=== PATIENT | female | born 1960 | race Caucasian/White ===

== ENCOUNTER 2020-01-06 08:08 | Emergency (ER) | payer MEDICARE, OTHER, SELFPAY ==
[2020-01-06] VITALS (13 sets, daily range): BP systolic 125–186; BP diastolic 62–95; PULSE 80–107; RESP 16–43; O2SAT 86–100; BMI 54.9
--- NOTE | 2020-01-06 08:29 | ECG_ITS ---
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 Measurements Intervals [place] Rate: 95 P: 18 MD: 183 QRS: 30 QRSD: 101 T: 6 QT: 382 QTc: 481 Interpretive Statements SINUS RHYTHM WITH OCCASIONAL VENTRICULAR PREMATURE COMPLEXES NONSPECIFIC ST & T-WAVE ABNORMALITY No previous ECG available for comparison Electronically Signed On 01-06-2020 18:41:41 CDT by Jhonatan Vivas M.D. [id number]
--- NOTE | 2020-01-06 08:29 | XR_ITS ---
WS: [id number] Portable AP semiupright chest, 01/06/2020 Clinical Data: sob Comparison: PA and lateral chest, 09/20/2013. Findings: There is a patchy opacity at the right cardiophrenic angle which may represent acute pneumo mingo. The patient has a poor inspiratory effort. There may be enlargement of the left hilum. There is a shift of the heart from right to left. No nodules or effusions are seen. Monitor leads are on the c hest wall. The pulmonary vascularity is not increased. Degenerative change of the left shoulder is pr esent. XR/XR chest 1V portable [id number] Impression: 1. Patchy opacity at right cardiophrenic angle which could represent pneumonia. 2. Left hilar enlargement with possible volume loss in the left lung and shift of the heart from right to left. 3. Recommend PA and lateral chest.
[2020-01-06 08:51] LABS: ABG PCO2 40.7 mmHg (35-45); ABG PH Result 7.44 (7.35-7.45); Arterial Blood Gas Hematocrit 41.6 % (37-47); Base Excess ABG 3.4 mmol/L (-2.0-2.0); Blood Gas Allen Test Pos; Blood Gas Operator Identificat CK; Blood Gas Sample Site Radial, left; Blood Gas Sample Type Arterial; HCO3 ABG 27.8 mmol/L (22-26); Oxygen Device NC; PO2 ABG 88.8 mmHg (80.0-100.0)
--- NOTE | 2020-01-06 09:06 | PC.NURSE ---
Respiratory place pt on her belly for oxygenation saturation.
[2020-01-06 09:12] LABS: Basophils % 0.2 %; Hematocrit 42.5 % (37.0-47.0); Hemoglobin 13.2 g/dL (11.5-15.3); Lymphocytes # 1.3 10^3/uL (0.8-4.8); Lymphocytes % 14.6 %; Mean Corpuscular HGB Conc 31.1 g/dL (30.0-36.0); Mean Corpuscular Hemoglobin 28.3 pg (28.0-34.0); Mean Platelet Volume 10.2 fL (7.4-10.4); Monocytes # 0.7 10^3/uL (0.2-0.9); Monocytes % 8.3 %; Neutrophils # 6.65 10^3/uL (1.8-7.7); Neutrophils % 76.3 %; Nucleated Red Blood Cells % 0 %; Platelet Count 254 10^3/cmm (130-400); Red Blood Count 4.67 10^6/uL (4.1-5.3); Red Cell Distribution Width 13.7 % (12.1-15.1); White Blood Count 8.7 10^3/uL (4.0-10.0)
--- NOTE | 2020-01-06 09:19 | W.ED.COVID ---
HPI - COVID General: Chief Complaint: COVID symptoms Stated Complaint: SOB/Covid + Time Seen by Provider: 01/06/20 08:15 Triage information: Has fever, cough or shortness of breath. Exposure to COVID + person last 14 days History of Present Illness: HPI Narrative: 59-year-old female presents emergency room with complaint of shortness of breath and difficulty breathing. She had a positive antibody test earlier this week after she had symptoms for about 3 days. She is not had any diarrhea she has severe sore throat and difficult time swallowing. She desats with any activity even sitting up in bed while on oxygen she goes from the mid 90s to the upper 70s. She is tachycardic and tachypneic. She denies any chest pain she does have some leg pain. MD complaint: known COVID positive (Is only been tested on antibody test) and has COVID symptoms Prior covid testing: yes, results known (Antibody testing) COVID 19 common symptoms: positive fever(s), chills, cough, productive cough, dyspnea, nasal congestion and nausea; negative throat pain, vomiting or diarrhea COVID 19 other sytmptoms: positive requiring oxygen, respiratory distress and other concerning symptoms (desaturates in the bed just when sitting up); negative chest pain Onset (ago): day(s) (2) Severity: severe Pertinent comorbid conditions: hypertension, COPD/respiratory disease and obesity Treatment prior to arrival: none COVID Results: SARS-CoV-2 Antigen (Rapid) Positive (Negative) H 01/06/20 11:00 01/06/20 Review of Systems Const: Reports: fever(s) and chills ENMT: Reports: nasal discharge and nasal congestion; Denies: throat pain or ear or mastoid pain Card: Reports: edema and dyspnea on exertion; Denies: chest pain or orthopnea Resp: Reports: dyspnea, productive cough and wheezing GI: Reports: nausea; Denies: abdominal pain, vomiting, hematemesis, coffee ground emesis, diarrhea, constipation, bloating, hematochezia or melena : Denies: flank pain, difficulty voiding, dysuria, urinary frequency or urinary urgency Skin/Breast: Denies: rash or pruritus PFS ED PFSH: Medical History (Updated 01/07/20 @ 07:31 by Stephon Cano DO) Asthma Cardiac arrhythmia Chest pain Diabetes mellitus Hyperlipemia Hypertension Hypothyroid Metabolic syndrome Mitral regurgitation Sleep apnea Vasculitis Surgical History (Updated 01/06/20 @ 09:57 by Stephon Cano DO) H/O thyroidectomy History of tonsillectomy History of uvulopalatopharyngoplasty Family History (Updated 04/14/19 @ 10:22 by Georgina Bell LPN) Other CAD (coronary artery disease) Social History (Updated 04/14/19 @ 10:22 by Georgina Bell LPN) Smoking and tobacco status: never smoked Alcohol intake: never Physical Exam Const: COMMON NORMALS: no acute distress GENERAL APPEARANCE: cooperative and comfortable ORIENTATION/CONSCIOUSNESS: Yes awake, Yes oriented to person, Yes oriented to place and Yes oriented to time HENMT: COMMON NORMALS: normocephalic, atraumatic and hearing grossly normal bilaterally HEAD & SCALP: normocephalic and atraumatic Neck/C-Spine: COMMON NORMALS: no JVD Resp: COMMON NORMALS: normal respiratory effort, No retractions, No use of accessory muscles and clear to auscultation bilaterally AUSCULTATION: clear to auscultation bilaterally Cardio: COMMON NORMALS: no JVD, regular rate, regular rhythm and No murmurs present (Cardio) RATE: regular rate RHYTHM: regular rhythm GI: COMMON NORMALS: Soft to palpation and No hepatosplenomegaly present AUSCULTATION: Yes normoactive bowel sounds PALPATION: Yes Soft to palpation, No Tenderness to palpation present (GI), No Guarding due to palpation present (GI) and Yes No hepatosplenomegaly present Extremity: COMMON NORMALS: normal to inspection, capillary refill normal, no clubbing, cyanosis or edema, no calf tenderness and no pedal edema Neuro: SENSORIUM/ORIENTATION: Yes oriented to person, Yes oriented to place and Yes oriented to time Skin: COMMON NORMALS: no rashes or lesions noted GENERAL SKIN EXAM: no rashes or lesions noted Procedures Intubation Time out performed: Yes sedative: Etomidate Mg Given: 40 paralytic: Succinylcholine Mg Given: 130 Laryngoscope: fiber optic video scope Assist Device Used: fiber optic device ET Tube Size: 8 ET Tube Uncuffed: No Tube Secured Depth (cm): 21 Tube Secured Location: teeth Additional Comments: Intubation complicated by IV infiltrating during RSI. IV resecured and meds redosed. Course Vital Signs: Vital signs: Vital Signs Pulse Rate 80 01/06/20 18:00 Respiratory Rate 16 01/06/20 18:11 Blood Pressure 128/63 01/06/20 18:00 Pulse Oximetry 96 01/06/20 18:11 MDM - COVID MDM Narrative Medical decision making narrative: Pt maintaining sat only at rest with high flow oxygen. Sitting up to reposition or sign transfer papers. Discussed with pt to safely transfer she will need to be intubated. Pt is agreeable. Transfer needed to have available increased treatment options. Lab Data Attestation: I reviewed the patient's lab results. Result diagrams: 01/06/20 08:50 01/06/20 08:50 Labs: Lab Results 01/06/20 01/06/20 01/06/20 Range/Units 08:37 08:50 08:50 WBC 8.7 (4.0-10.0) 10^3/uL RBC 4.67 (4.1-5.3) 10^6/uL Hgb 13.2 (11.5-15.3) g/dL Hct 42.5 (37.0-47.0) % MCV 91.0 (81-99) fL MCH 28.3 (28.0-34.0) pg MCHC 31.1 (30.0-36.0) g/dL RDW 13.7 (12.1-15.1) % Plt Count 254 (130-400) 10^3/cmm MPV 10.2 (7.4-10.4) fL Neut % (Auto) 76.3 % Lymph % (Auto) 14.6 % [place] % (Auto) 8.3 % Eos % (Auto) 0.0 % Baso % (Auto) 0.2 % Neut # (Auto) 6.65 (1.8-7.7) 10^3/uL Lymph # (Auto) 1.3 (0.8-4.8) 10^3/uL [place] # (Auto) 0.7 (0.2-0.9) 10^3/uL Eos # (Auto) 0.0 (0.0-0.8) 10^3/uL Baso # (Auto) 0.0 (0.0-0.1) 10^3/uL Nucleated RBC % (auto) 0 % Nucleated RBCs # 0.0 /100WBC PT 13.70 (12.1-14.9) SECONDS INR 1.02 (0.8-1.2) Fibrinogen 540 H (174-498) mg/dL D-Dimer 1.73 H (0-0.59) ug/mIFEU Specimen Type Arterial Sample Site Radial, left ABG pH 7.44 (7.35-7.45) ABG pCO2 40.7 (35-45) mmHg ABG pO2 88.8 (80.0-100.0) mmHg ABG HCO3 27.8 H (22-26) mmol/L ABG Base Excess 3.4 H (-2.0-2.0) mmol/L Arpit Test Pos Hematocrit 41.6 (37-47) % O2 Delivery Device Nc O2 Liters/Min 6.0 % FiO2 44.0 % Accounts Payables Clerk ID Ck Sodium (136-145) mmol/L Potassium (3.5-5.1) mmol/L Chloride (98-107) mmol/L Carbon Dioxide (22-29) mmol/L Anion Gap (5-19) BUN (6-20) mg/dL Creatinine (0.5-0.9) mg/dL GFR Calculation (90-130) mL/min Glucose (65-115) mg/dL Calculated Osmolality (285-295) mOsm/kg Lactic Acid (0.5-2.2) mmol/L Calcium (8.5-10.5) mg/dL Magnesium (1.7-2.3) mg/dL Total Bilirubin (0.15-1.2) mg/dL AST (0-32) U/L ALT (0-33) U/L Alkaline Phosphatase (35-105) IU/L Lactate Dehydrogenase (135-214) U/L Troponin T Gen 5 ng/L (0-10) ng/L C-Reactive Protein (0.0-4.9) mg/L NT-Pro-B Natriuret Pep (0-125) pg/mL Total Protein (6.6-8.7) g/dL Albumin (3.5-5.2) g/dL Globulin (1.3-4.6) g/dL Procalcitonin (0-0.5) ng/mL Influenza Type A Ag (Negative) Influenza Type B Ag (Negative) SARS-CoV-2 Ag (Rapid) (Negative) 01/06/20 01/06/20 01/06/20 Range/Units 08:50 08:50 08:50 WBC (4.0-10.0) 10^3/uL RBC (4.1-5.3) 10^6/uL Hgb (11.5-15.3) g/dL Hct (37.0-47.0) % MCV (81-99) fL MCH (28.0-34.0) pg MCHC (30.0-36.0) g/dL RDW (12.1-15.1) % Plt Count (130-400) 10^3/cmm MPV (7.4-10.4) fL Neut % (Auto) % Lymph % (Auto) % [place] % (Auto) % Eos % (Auto) % Baso % (Auto) % Neut # (Auto) (1.8-7.7) 10^3/uL Lymph # (Auto) (0.8-4.8) 10^3/uL [place] # (Auto) (0.2-0.9) 10^3/uL Eos # (Auto) (0.0-0.8) 10^3/uL Baso # (Auto) (0.0-0.1) 10^3/uL Nucleated RBC % (auto) % Nucleated RBCs # /100WBC PT (12.1-14.9) SECONDS INR (0.8-1.2) Fibrinogen (174-498) mg/dL D-Dimer (0-0.59) ug/mIFEU Specimen Type Sample Site ABG pH (7.35-7.45) ABG pCO2 (35-45) mmHg ABG pO2 (80.0-100.0) mmHg ABG HCO3 (22-26) mmol/L ABG Base Excess (-2.0-2.0) mmol/L Arpit Test Hematocrit (37-47) % O2 Delivery Device O2 Liters/Min % FiO2 % Accounts Payables Clerk ID Sodium 136 (136-145) mmol/L Potassium 3.5 (3.5-5.1) mmol/L Chloride 96 L (98-107) mmol/L Carbon Dioxide 26 (22-29) mmol/L Anion Gap 17.5 (5-19) BUN 9 (6-20) mg/dL Creatinine 0.9 (0.5-0.9) mg/dL GFR Calculation 64.1 L (90-130) mL/min Glucose 137 H (65-115) mg/dL Calculated Osmolality 283 L (285-295) mOsm/kg Lactic Acid 1.4 (0.5-2.2) mmol/L Calcium 7.9 L (8.5-10.5) mg/dL Magnesium 2.0 (1.7-2.3) mg/dL Total Bilirubin 0.5 (0.15-1.2) mg/dL AST 31 (0-32) U/L ALT 10 (0-33) U/L Alkaline Phosphatase 96 (35-105) IU/L Lactate Dehydrogenase 446 H (135-214) U/L Troponin T Gen 5 ng/L 15 H (0-10) ng/L C-Reactive Protein 187.0 H (0.0-4.9) mg/L NT-Pro-B Natriuret Pep 999 H (0-125) pg/mL Total Protein 6.6 (6.6-8.7) g/dL Albumin 3.6 (3.5-5.2) g/dL Globulin 3.0 (1.3-4.6) g/dL Procalcitonin 0.29 (0-0.5) ng/mL Influenza Type A Ag (Negative) Influenza Type B Ag (Negative) SARS-CoV-2 Ag (Rapid) (Negative) 01/06/20 01/06/20 Range/Units 11:00 11:00 WBC (4.0-10.0) 10^3/uL RBC (4.1-5.3) 10^6/uL Hgb (11.5-15.3) g/dL Hct (37.0-47.0) % MCV (81-99) fL MCH (28.0-34.0) pg MCHC (30.0-36.0) g/dL RDW (12.1-15.1) % Plt Count (130-400) 10^3/cmm MPV (7.4-10.4) fL Neut % (Auto) % Lymph % (Auto) % [place] % (Auto) % Eos % (Auto) % Baso % (Auto) % Neut # (Auto) (1.8-7.7) 10^3/uL Lymph # (Auto) (0.8-4.8) 10^3/uL [place] # (Auto) (0.2-0.9) 10^3/uL Eos # (Auto) (0.0-0.8) 10^3/uL Baso # (Auto) (0.0-0.1) 10^3/uL Nucleated RBC % (auto) % Nucleated RBCs # /100WBC PT (12.1-14.9) SECONDS INR (0.8-1.2) Fibrinogen (174-498) mg/dL D-Dimer (0-0.59) ug/mIFEU Specimen Type Sample Site ABG pH (7.35-7.45) ABG pCO2 (35-45) mmHg ABG pO2 (80.0-100.0) mmHg ABG HCO3 (22-26) mmol/L ABG Base Excess (-2.0-2.0) mmol/L Arpit Test Hematocrit (37-47) % O2 Delivery Device O2 Liters/Min % FiO2 % Accounts Payables Clerk ID Sodium (136-145) mmol/L Potassium (3.5-5.1) mmol/L Chloride (98-107) mmol/L Carbon Dioxide (22-29) mmol/L Anion Gap (5-19) BUN (6-20) mg/dL Creatinine (0.5-0.9) mg/dL GFR Calculation (90-130) mL/min Glucose (65-115) mg/dL Calculated Osmolality (285-295) mOsm/kg Lactic Acid (0.5-2.2) mmol/L Calcium (8.5-10.5) mg/dL Magnesium (1.7-2.3) mg/dL Total Bilirubin (0.15-1.2) mg/dL AST (0-32) U/L ALT (0-33) U/L Alkaline Phosphatase (35-105) IU/L Lactate Dehydrogenase (135-214) U/L Troponin T Gen 5 ng/L (0-10) ng/L C-Reactive Protein (0.0-4.9) mg/L NT-Pro-B Natriuret Pep (0-125) pg/mL Total Protein (6.6-8.7) g/dL Albumin (3.5-5.2) g/dL Globulin (1.3-4.6) g/dL Procalcitonin (0-0.5) ng/mL Influenza Type A Ag Negative (Negative) Influenza Type B Ag Negative (Negative) SARS-CoV-2 Ag (Rapid) Positive H (Negative) COVID Results: SARS-CoV-2 Antigen (Rapid) Positive (Negative) H 01/06/20 11:00 01/06/20 Discharge Plan Discharge Patient Disposition: Xfer Other Clinical Impression: COVID-19 virus infection, Diabetes, HTN (hypertension) Prescriptions: No Action atenolol 100 mg tablet 100 mg PO QAM RF: 0 furosemide 40 mg tablet 40 mg PO QAM RF: 0 levothyroxine [Synthroid] 200 mcg tablet 200 mcg PO QDAY RF: 0 venlafaxine 150 mg tablet extended release 24hr 150 mg PO QAM RF: 0 gabapentin 300 mg capsule 300 mg PO BID RF: 0 alprazolam 1 mg tablet 1 mg PO BID PRNRF: 0 cetirizine [Zyrtec] 10 mg tablet 10 mg PO BID RF: 0 Spiriva Respimat 1.25 mcg/actuation mist 2 puff INHALATION QAM RF: 0 Symbicort 160-4.5 mcg/actuation HFA aerosol inhaler 2 puff INHALATION BID RF: 0 epinephrine [EpiPen] 0.3 mg/0.3 mL auto-injector 0.3 mg IM ONCE PRNRF: 0 Xolair 150 mg recon soln 150 mg SUBCUT .MONTHLY RF: 0 fluticasone propionate 50 mcg/actuation spray,suspension 1 spray INTRANASAL QDAY PRNRF: 0 clopidogrel 75 mg tablet 75 mg PO QDAY RF: 0 aspirin 81 mg tablet,delayed release (DR/EC) 81 mg PO QDAY RF: 0 loperamide 2 mg capsule 2 mg PO Q4H PRNRF: 0 polymyxin B sulf-trimethoprim [Polytrim] 10,000 unit- 1 mg/mL drops 1 drop ophthalmic (eye) Q3H PRNRF: 0 potassium chloride 20 mEq tablet extended release 20 meq PO QDAY Qty: 30 RF: 11 Referrals: Kapil Turner MD [Family Provider] - Kapil Johns Jr, MD [Primary Care Provider] - Interventions: ED Discharge Assessment Last Done: 01/06/20 18:22 ED Charges Last Done: 01/06/20 18:22 Discharge Date/Time: 01/06/20 18:30 Coding Level of Care Code ED Cook Chill Technician for Chg Fwd Exam Comprehensive
[2020-01-06] MEDS: dexamethasone 4 mg/mL INJ 6 MG IVP (09:25)
[2020-01-06 09:29] LABS: INR 1.02 (0.8-1.2)
[2020-01-06 09:30] LABS: Fibrinogen 540 mg/dL (174-498); Lactic Sepsis W/Reflex 1.4 mmol/L (0.5-2.2)
[2020-01-06 09:32] LABS: D Dimer 1.73 ug/mIFEU (0-0.59)
[2020-01-06 09:34] LABS: Troponin T (5th) Once 15 ng/L (0-10)
[2020-01-06 09:42] LABS: NT Pro B Type Natriuretic Pept 999 pg/mL (0-125); Procalcitonin 0.29 ng/mL (0-0.5)
[2020-01-06 09:53] LABS: Alanine Aminotransferase 10 U/L (0-33); Albumin Level 3.6 g/dL (3.5-5.2); Alkaline Phosphatase 96 IU/L (35-105); Anion Gap 17.5 (5-19); Aspartate Amino Transferase 31 U/L (0-32); Blood Urea Nitrogen 9 mg/dL (6-20); Calcium 7.9 mg/dL (8.5-10.5); Carbon Dioxide 26 mmol/L (22-29); Chloride 96 mmol/L (98-107); Glomerular Filtration Rate 64.1 mL/min (90-130); Glucose 137 mg/dL (65-115); Osmolality Calculated 283 mOsm/kg (285-295); Potassium 3.5 mmol/L (3.5-5.1); Sodium 136 mmol/L (136-145); Total Bilirubin 0.5 mg/dL (0.15-1.2); Total Protein 6.6 g/dL (6.6-8.7)
[2020-01-06 09:55] LABS: Lactate Dehydrogenase 446 U/L (135-214)
[2020-01-06 12:04] LABS: Influenza A by IFA Negative (Negative); SARS Covid-2 Antigen Positive (Negative)
[2020-01-06 12:05] LABS: Influenza B by IFA Negative (Negative)
[2020-01-06] MEDS: acetaminophen 500 mg Tablet 1000 MG PO (13:21)
[2020-01-06] MEDS: succinylcholine 20 mg/mL SDV 10mL 30 MG IVP (16:57)
[2020-01-06] MEDS: vecuronium 10 mg SDV IVP ×2 (17:00→17:05)
[2020-01-06] MEDS: fentaNYL 50 mcg/mL INJ 2mL 100 MCG IVP ×2 (17:02→18:11)
[2020-01-06] MEDS: midazolam 1 mg/mL INJ 2 mL 2 MG (18:28)
[2020-01-06] MEDS: propofol 1,000 MG/100 ML INJ 8.7 MG IV (18:29)
== END 2020-01-06 18:30 | disposition other institution (70) ==
PROVIDERS: Nurse Practitioner Family; Emergency Provider Family Medicine; Family Provider Family Medicine; PCP Family Medicine
DX: U07.1 COVID-19 (principal); E11.9 Type 2 diabetes mellitus without complications; I10 Essential (primary) hypertension; Z79.82 Long term (current) use of aspirin; Z79.02 Long term (current) use of antithrombotics/antiplatelets; E78.5 Hyperlipidemia, unspecified
CPT/HCPCS: 12345; 31500; 36600; 51702; 71045; 80053; 82803; 83605; 83615; 83735; 83880; 84145; 84484; 85025; 85378; 85384; 85610; 86140; 87426; 87804; 93005; 94002; 94799; 96365; 96375; 99284; 99291; J0330; J1100; J2250; J2704; J3010; J3490

== ENCOUNTER 2020-03-02 13:27 | Outpatient (CLI) | payer MEDICARE, OTHER, SELFPAY ==
--- NOTE | 2020-03-02 13:34 | MM_ITS ---
WS: [id number] SCREENING DIGITAL MAMMOGRAM WITH CAD HISTORY: SCREENING COMPARISON: 04/16/2018, 12/23/2016 and 09/04/2005 Bilateral CC and MLO views submitted. Computer aided detection analyzed. Breast composition: There are scattered areas of fibroglandular density. No suspicious masses, microc alcifications or architectural distortion. Benign calcifications in each breast. MM/[id number] IMPRESSION: BI-RADS: 2-Benign FOLLOW UP: 1 Year Follow-up
== END 2020-03-02 13:28 | disposition home or self-care (01) ==
LOC: RADSHAW 13:33
PROVIDERS: PCP Family Medicine; Visit Provider Family Medicine
DX: Z12.31 Encounter for screening mammogram for malignant neoplasm of breast (principal)
CPT/HCPCS: 77067

== ENCOUNTER → 2021-12-11 15:54 | Outpatient (BNVA) | payer MEDICARE, OTHER, SELFPAY | PROVIDERS: PCP Family Medicine; Visit Provider Internal Medicine Cardiovascular Disease | DX: I49.9 Cardiac arrhythmia, unspecified (principal); I11.0 Hypertensive heart disease with heart failure; I50.32 Chronic diastolic (congestive) heart failure; Z86.73 Personal history of transient ischemic attack (TIA), and cerebral infarction without residual deficits; I34.0 Nonrheumatic mitral (valve) insufficiency; G47.39 Other sleep apnea | CPT/HCPCS: 99214 ==

== ENCOUNTER 2022-03-21 14:18 | Outpatient (CLI) | payer MEDICARE, OTHER, SELFPAY ==
--- NOTE | 2022-03-21 14:28 | MM_ITS ---
WS: [id number] Bilateral screening 3D tomosynthesis digital mammogram, 03/21/2022 Clinical Data: SCREENING Comparison: 03/02/2020, 04/16/2018, 12/23/2016, 10/25/2015, 03/23/2012, 09/12/2010, 09/04/2005. Findings: The breast parenchymal pattern shows fibroglandular tissue. No spiculated masses or clustered calcifi cations are seen. There are no secondary signs of carcinoma. There are clips in left axilla from prio r surgery. Impression: 1. Negative bilateral mammogram unchanged. 2. Recommend annual screening mammograms. MM/[id number] BIRADS: 1-Negative FOLLOW UP: 1 Year Follow-up The CAD [employer] was used.
== END 2022-03-21 14:19 | disposition home or self-care (01) ==
PROVIDERS: PCP Family Medicine; Visit Provider Family Medicine
DX: Z12.31 Encounter for screening mammogram for malignant neoplasm of breast (principal)
CPT/HCPCS: 77067

== ENCOUNTER → 2022-10-03 12:49 | Outpatient (BNVA) | payer MEDICARE, OTHER, SELFPAY | PROVIDERS: PCP Family Medicine; Visit Provider Internal Medicine Cardiovascular Disease | DX: N18.9 Chronic kidney disease, unspecified (principal); R06.02 Shortness of breath; R06.09 Other forms of dyspnea; G47.39 Other sleep apnea; I34.0 Nonrheumatic mitral (valve) insufficiency; I49.9 Cardiac arrhythmia, unspecified; I50.32 Chronic diastolic (congestive) heart failure; R94.31 Abnormal electrocardiogram [ECG] [EKG] | CPT/HCPCS: 80048; 83880; 84443; 93005; 99214 ==

== ENCOUNTER 2022-10-11 19:07 | Emergency (ER) | payer MEDICARE, OTHER, SELFPAY ==
[2022-10-11 19:26] VITALS: BMI 53.4
[2022-10-11 19:32] VITALS: BP 140/79; PULSE 77; RESP 20; TEMP 36.5; O2SAT 100
--- NOTE | 2022-10-11 21:36 | XRR_ITS ---
PROCEDURE INFORMATION: Exam: XR Chest Exam date and time: 10/11/2022 9:59 PM Age: 62 years old Clinical indication: Dyspnea; Additional info: Dyspnea/cough TECHNIQUE: Imaging protocol: Radiologic exam of the chest. Views: 1 view. COMPARISON: CR XR chest 1V portable [id number] 01/06/2020 8:36 AM FINDINGS: Lungs: Unremarkable. No consolidation. Pleural spaces: Unremarkable. No pleural effusion. No pneumothorax. Heart/Mediastinum: Cardiomegaly. Bones/joints: Unremarkable. XR/XR chest 1V portable [id number] IMPRESSION: Cardiomegaly, negative for infiltrate.
[2022-10-11 22:00] VITALS: BP 140/81; PULSE 76; RESP 20; O2SAT 98
--- NOTE | 2022-10-11 22:08 | ED_ITS ---
HPI - General Adult General: Chief complaint: Shortness of Breath/Dyspnea Stated complaint: blood in mouth, sob, dr carlos sent for CT Time Seen by Provider: 10/11/22 21:34 Source: patient Mode of arrival: ambulatory History of Present Illness: 60-year-old female presents emergency room with complaint of increasing sinus drainage for the last couple days slight cough this morning she woke up around 1 PM and clears her throat and had some very slight hemoptysis no recurrence then since then. She has a history of chronic COPD and CHF she is on 3 L by nasal cannula is at her baseline she is not tachycardic nor she tachypneic she has no shortness of breath. No recent fever sweats or chills or productive cough other than the single episode today. Onset (ago): day(s) Associated symptoms: Deny chest pain, confusion, cough, diaphoresis, decreased appetite, dyspnea, fevers/chills, headache(s), malaise, nausea, rash, palpitations, seizures, short of breath, syncope, vomiting or weakness Review of Systems Const: Denies: fever(s), chills, malaise or diaphoresis ENMT: Reports: nasal congestion, post nasal drip and sinus pain; Denies: throat pain, ear or mastoid pain or nasal discharge Card: Denies: chest pain, palpitations or syncope Resp: Denies: dyspnea GI: Denies: nausea or vomiting : Denies: flank pain, difficulty voiding, dysuria, urinary frequency or urinary urgency Skin/Breast: Denies: rash Neuro: Denies: headache(s) or confusion PFSH ED PFSH: Medical History Asthma Cardiac arrhythmia Chest pain Diabetes mellitus Family history of COPD (chronic obstructive pulmonary disease) Family history of [place] (myocardial infarction) Family history of premature ventricular contractions History of asthma History of hypertension History of hypothyroidism History of peptic ulcer disease History of shingles History of unsteady gait Hx of amaurosis fugax Hx of cardiac arrhythmia Hx of chest pain Hx of Marga thyroiditis Hx of hyperlipidemia Hx of obesity Hx of shortness of breath Hx of sleep apnea Hx of syncope Hyperlipemia Hypertension Hypothyroid Metabolic syndrome Mitral regurgitation Sleep apnea Vasculitis Surgical History H/O thyroidectomy History of tonsillectomy History of uvulopalatopharyngoplasty Hx of melanoma excision Family History Father CAD (coronary artery disease) Mother Dementia Stroke Brother Diabetes Lung disease Daughter Diabetes Denies family history of Clotting disorder Chronic kidney disease (CKD) Suicide Anesthesia complication Bleeding disorder Cancer Social History Smoking and tobacco status: never smoked Alcohol intake: never Substance/Drug Use: never Physical Exam Const: COMMON NORMALS: no acute distress GENERAL APPEARANCE: cooperative and comfortable ORIENTATION/CONSCIOUSNESS: Yes awake, Yes oriented to person, Yes oriented to place and Yes oriented to time HENMT: COMMON NORMALS: normocephalic, atraumatic and hearing grossly normal bilaterally HEAD & SCALP: normocephalic and atraumatic Resp: COMMON NORMALS: normal respiratory effort, No retractions, No use of accessory muscles and clear to auscultation bilaterally AUSCULTATION: clear to auscultation bilaterally Cardio: COMMON NORMALS: regular rate, regular rhythm and No murmurs present (Cardio) RATE: regular rate RHYTHM: regular rhythm GI: COMMON NORMALS: Soft to palpation and No hepatosplenomegaly present AUSCULTATION: Yes normoactive bowel sounds PALPATION: Yes Soft to palpation, No Tenderness to palpation present (GI), No Guarding due to palpation present (GI) and Yes No hepatosplenomegaly present Extremity: COMMON NORMALS: normal to inspection, capillary refill normal, no clubbing, cyanosis or edema, no calf tenderness and no pedal edema Neuro: SENSORIUM/ORIENTATION: Yes oriented to person, Yes oriented to place and Yes oriented to time Skin: COMMON NORMALS: no rashes or lesions noted GENERAL SKIN EXAM: no rashes or lesions noted Course Vital Signs: Vital signs: Vital Signs Temperature 97.7 F 10/11/22 19:32 Pulse Rate 77 10/11/22 19:32 Respiratory Rate 20 H 10/11/22 19:32 Blood Pressure 140/79 10/11/22 19:32 Pulse Oximetry 100 10/11/22 19:32 Oxygen Delivery Me thod Nasal Cannula 10/11/22 19:32 Oxygen Flow Rate 3 10/11/22 19:32 MDM - General Adult Medical Decision Making Patient reports single episode of hemoptysis earlier today she did not have any recurrence. She is not tachycardic nor is she tachypneic. Her oxygen sats are normal on her usual look oxygen supplementation. We will give her Augmentin to cover for sinusitis that are for an outpatient CT of the chest with contrast follow-up with her primary care doctor return if worsens. Differential Diagnosis Pneumonia, pulmonary embolism, pneumothorax, exacerbation COPD Medical Records I reviewed the patient's medical records. Lab Data I reviewed the patient's lab results. 10/11/22 22:10 10/11/22 22:10 Laboratory Results WBC 7.3 10^3/uL (4.0-10.0) 10/11/22 22:10 RBC 5.23 10^6/uL (4.1-5.3) 10/11/22 22:10 Hgb 14.6 g/dL (11.5-15.3) 10/11/22 22:10 Hct 47.3 % (37.0-47.0) H 10/11/22 22:10 MCV 90.4 fl (81-99) 10/11/22 22:10 MCH 27.9 pg (28.0-34.0) L 10/11/22 22:10 MCHC 30.9 g/dL (30.0-36.0) 10/11/22 22:10 RDW 13.8 % (12.1-15.1) 10/11/22 22:10 Plt Count 319 10^3/cmm (130-400) 10/11/22 22:10 MPV 11.4 fL (7.4-10.4) H 10/11/22 22:10 Neut % (Auto) 35.9 % 10/11/22 22:10 Lymph % (Auto) 52.3 % 10/11/22 22:10 [place] % (Auto) 10.5 % 10/11/22 22:10 Eos % (Auto) 0.3 % 10/11/22 22:10 Baso % (Auto) 0.7 % 10/11/22 22:10 Neut # (Auto) 2.64 10^3/uL (1.8-7.7) 10/11/22 22:10 Lymph # (Auto) 3.8 10^3/uL (0.8-4.8) 10/11/22 22:10 [place] # (Auto) 0.8 10^3/uL (0.2-0.9) 10/11/22 22:10 Eos # (Auto) 0.0 10^3/uL (0.0-0.8) 10/11/22 22:10 Baso # (Auto) 0.1 10^3/uL (0.0-0.1) 10/11/22 22:10 Nucleated RBC % (auto) 0 % 10/11/22 22:10 Nucleated RBCs # 0.0 /100WBC 10/11/22 22:10 Sodium 140 mmol/L (136-145) 10/11/22 22:10 Potassium 3.9 mmol/L (3.5-5.1) 10/11/22 22:10 Chloride 93 mmol/L (98-107) L 10/11/22 22:10 Carbon Dioxide 35 mmol/L (22-29) H 10/11/22 22:10 Anion Gap 15.9 (5-19) 10/11/22 22:10 BUN 9 mg/dL (8-23) 10/11/22 22:10 Creatinine 0.8 mg/dL (0.5-0.9) 10/11/22 22:10 GFR Calculation 72.7 mL/min (90-130) L 10/11/22 22:10 Glucose 122 mg/dL (65-115) H 10/11/22 22:10 Calculated Osmolality 290 mOsm/kg (285-295) 10/11/22 22:10 Calcium 8.9 mg/dL (8.5-10.5) 10/11/22 22:10 Total Bilirubin 0.6 mg/dL (0.15-1.2) 10/11/22 22:10 AST 24 U/L (0-32) 10/11/22 22:10 ALT 10 U/L (0-33) 10/11/22 22:10 Alkaline Phosphatase 77 U/L (35-105) 10/11/22 22:10 Total Protein 7.3 g/dL (6.6-8.7) 10/11/22 22:10 Albumin 3.8 g/dL (3.5-5.2) 10/11/22 22:10 Globulin 3.5 g/dL (1.3-4.6) 10/11/22 22:10 Discharge Plan Discharge Patient Disposition: Home Clinical Impression: Sinusitis, Hemoptysis Condition: Stable Prescriptions: New amoxicillin-pot clavulanate 875-125 mg tablet 1 tab PO BID Qty: 20 0RF No Action atenolol 100 mg tablet 100 mg PO QAM venlafaxine 150 mg tablet extended release 24hr 150 mg PO QAM alprazolam 1 mg tablet 1 mg PO BID PRN cetirizine [Zyrtec] 10 mg tablet 10 mg PO BID Spiriva Respimat 1.25 mcg/actuation mist 2 puff INHALATION QAM Symbicort 160-4.5 mcg/actuation HFA aerosol inhaler 2 puff INHALATION BID epinephrine [EpiPen] 0.3 mg/0.3 mL auto-injector 0.3 mg IM ONCE PRN Xolair 150 mg recon soln 150 mg SUBCUT .MONTHLY fluticasone propionate 50 mcg/actuation spray,suspension 1 spray INTRANASAL QDAY PRN clopidogrel 75 mg tablet 75 mg PO QDAY polymyxin B sulf-trimethoprim [Polytrim] 10,000 unit- 1 mg/mL drops 1 drop ophthalmic (eye) Q3H PRN levothyroxine [Synthroid] 200 mcg tablet 225 mcg PO QDAY escitalopram oxalate 20 mg tablet 20 mg PO DAILY amitriptyline 25 mg tablet 25 mg PO BID gabapentin 600 mg tablet 600 mg PO BID potassium chloride 20 mEq tablet,ER particles/crystals See Rx Instructions .ROUTE .COMPLEX Qty: 90 3RF Dose Instruction: TAKE 1 TABLET BY MOUTH EVERY DAY Rx Instructions: TAKE 1 TABLET BY MOUTH EVERY DAY furosemide 40 mg tablet 40 mg PO QAM Qty: 90 3RF Discharge Orders: Discharge ED (Routine); Ordered 10/11/22 Ordered By: Stephon Cano Referrals: Kapil Carlos MD [Primary Care Provider] - Discharge Diet: Usual diet Discharge Activity: Increase activity as tolerated Patient Instructions: Opioid Safety, Pain Management Activity Restrictions/Additional Instructions: You are seen today for single episode of hemoptysis. This likely that the blood that you had brought up when you clear your throat was from sinus drainage. We will set you up for an outpatient CT scan of your chest with contrast to follow- up with Dr. Carlos. We did give you prescription for Augmentin twice daily for 10 days to treat for sinusitis. Coding Level of Care Code ED Shopping Investigator for Lexii Izquierdo
[2022-10-11 22:18] LABS: Basophils # 0.1 10^3/uL (0.0-0.1); Basophils % 0.7 %; Eosinophils % 0.3 %; Hematocrit 47.3 % (37.0-47.0); Hemoglobin 14.6 g/dL (11.5-15.3); Lymphocytes # 3.8 10^3/uL (0.8-4.8); Lymphocytes % 52.3 %; Mean Corpuscular HGB Conc 30.9 g/dL (30.0-36.0); Mean Corpuscular Hemoglobin 27.9 pg (28.0-34.0); Mean Corpuscular Volume 90.4 fl (81-99); Mean Platelet Volume 11.4 fL (7.4-10.4); Monocytes # 0.8 10^3/uL (0.2-0.9); Monocytes % 10.5 %; Neutrophils # 2.64 10^3/uL (1.8-7.7); Neutrophils % 35.9 %; Nucleated Red Blood Cells % 0 %; Platelet Count 319 10^3/cmm (130-400); Red Blood Count 5.23 10^6/uL (4.1-5.3); Red Cell Distribution Width 13.8 % (12.1-15.1); White Blood Count 7.3 10^3/uL (4.0-10.0)
[2022-10-11 22:40] LABS: Albumin Level 3.8 g/dL (3.5-5.2); Alkaline Phosphatase 77 U/L (35-105); Anion Gap 15.9 (5-19); Blood Urea Nitrogen 9 mg/dL (8-23); Calcium 8.9 mg/dL (8.5-10.5); Carbon Dioxide 35 mmol/L (22-29); Chloride 93 mmol/L (98-107); Globulin 3.5 g/dL (1.3-4.6); Glomerular Filtration Rate 72.7 mL/min (90-130); Glucose 122 mg/dL (65-115); Osmolality Calculated 290 mOsm/kg (285-295); Potassium 3.9 mmol/L (3.5-5.1); Sodium 140 mmol/L (136-145); Total Bilirubin 0.6 mg/dL (0.15-1.2); Total Protein 7.3 g/dL (6.6-8.7)
[2022-10-11 22:41] LABS: Alanine Aminotransferase 10 U/L (0-33); Aspartate Amino Transferase 24 U/L (0-32)
[2022-10-11 23:32] VITALS: BP 122/63; PULSE 72; RESP 20; O2SAT 92
--- NOTE | 2022-10-14 12:23 | DCPLANNER ---
Addendum entered by Nadira Rhodes 10/31/22 12:30: Patient did attend this appointment Addendum entered by Nadira Rhodes 10/15/22 13:29: Patient has a follow up appointment scheduled for October at 11:[address]. Original Note: contract administration manager had message to schedule an outpatient CT chest for patient. contract administration manager faxed signed order to centralized scheduling, who will call patient with appointment information.
== END 2022-10-11 23:16 | disposition home or self-care (01) ==
PROVIDERS: Emergency Provider Family Medicine; PCP Family Medicine
DX: J32.9 Chronic sinusitis, unspecified (principal); R04.2 Hemoptysis; Z79.02 Long term (current) use of antithrombotics/antiplatelets; E11.9 Type 2 diabetes mellitus without complications; I10 Essential (primary) hypertension; E78.5 Hyperlipidemia, unspecified
CPT/HCPCS: 71045; 80053; 85025; 99284

== ENCOUNTER 2022-10-24 10:57 | Outpatient (CLI) | payer MEDICARE, OTHER, SELFPAY ==
--- NOTE | 2022-10-24 11:04 | CT_ITS ---
WS: [id number] CT chest w con* [id number] HISTORY: HEMOPTYSIS, history of melanoma. TECHNIQUE: Axial imaging performed through the thorax. Coronal and sagittal reformats are submitted. [facility] use at least one of these dose optimization techniques: automated exposure control; mA and/or kV adjustment per patient size (includes targeted exams where dose is mat ched to clinical indication); or iterative reconstruction. CONTRAST: None DLP: 715.81 mGy.cm COMPARISON: 07/28/2009 Lungs and central airway: Mild dependent changes and poor inspiration. Very subtle asymmetry in the s uperior segment LEFT lower lobe. May be a focal area of pneumonitis. There are a few very small pleur al tags in the RIGHT thorax. Largest pleural tag was present on the prior study from 2009. Pleura: Normal. No pleural effusion. Heart and pericardium: Normal size heart with no pericardial effusion. Mediastinum and marce: There are a few small, subcentimeter mediastinal and hilar lymph nodes. LEFT hi lar lymph nodes measure up to 14 mm. There are several indeterminate but more prominent lymph nodes a s compared to the prior study. Vessels: Normal size aortic and pulmonary artery. No coronary artery calcifications. Chest wall and lower neck: Enlarged LEFT thyroid lobe. Similar to the prior study. Upper abdomen: Prior cholecystectomy. Moderate distention of the stomach. Osseous structures: No destructive process. CT/CT chest w con* [id number] IMPRESSION: 1. Several prominent but indeterminate LEFT hilar lymph nodes with adjacent mi ld asymmetry in the superior segment LEFT lower lobe. Largest lymph node measur es up to 14 mm in diameter. These lymph nodes are new since 2009. Recommend PET /CT imaging or bronchoscopy for further evaluation. This may be postinflammator y but early neoplasm needs to be excluded. 2. Prior cholecystectomy.
[2022-10-24] MEDS: iohexol 350 mg/mL 500 mL Btl (per mL) IV (11:33)
[2022-10-24 13:09] LABS: Alanine Aminotransferase 10 U/L (0-33); Albumin Level 3.6 g/dL (3.5-5.2); Alkaline Phosphatase 80 U/L (35-105); Blood Urea Nitrogen 10 mg/dL (8-23); Calcium 9.2 mg/dL (8.5-10.5); Carbon Dioxide 30 mmol/L (22-29); Chloride 101 mmol/L (98-107); Globulin 3.2 g/dL (1.3-4.6); Glomerular Filtration Rate 72.7 mL/min (90-130); Glucose 127 mg/dL (65-115); Osmolality Calculated 293 mOsm/kg (285-295); Sodium 141 mmol/L (136-145); Total Bilirubin 0.2 mg/dL (0.15-1.2); Total Protein 6.8 g/dL (6.6-8.7)
[2022-10-24 13:14] LABS: Anion Gap 14.1 (5-19); Aspartate Amino Transferase 20 U/L (0-32); Potassium 4.1 mmol/L (3.5-5.1)
== END 2022-10-24 10:58 | disposition home or self-care (01) ==
PROVIDERS: PCP Family Medicine; Referring Provider Internal Medicine Cardiovascular Disease; Visit Provider Family Medicine
DX: I50.32 Chronic diastolic (congestive) heart failure (principal); Z85.820 Personal history of malignant melanoma of skin
CPT/HCPCS: 36415; 71260; 80053; Q9967

== ENCOUNTER 2023-01-20 15:13 | Outpatient (CLI) | payer MEDICARE, OTHER, SELFPAY ==
--- NOTE | 2023-01-20 15:15 | USCV_ITS ---
Jia Reyes Age: 62 Gender: F : 1960 Exam Date: 01/20/2023 15:33 Ordering Phys: Truong Beasley MD ([email or web address]) Technologist: CT Exam Location: [facility] Indication: MR BP: 110 / 75 HR: 68 Rhythm: Sinus Technical Quality: Adequate MEASUREMENTS (Male / Female) Normal Values 2D ECHO LVOT Diameter 2.1 cm LV Ejection Fraction MOD 2C 52.5 % LV Ejection Fraction 2C AL 52.1 % LA Diameter 4.3 cm Aorta at Sinotubular Diameter 2.6 cm M-MODE Aortic Annulus Diameter 3.5 cm LA Ao Ratio MM 1.3 MV E Point Septal Separation 1.1 cm DOPPLER AV Peak Velocity 125.0 cm/s LVOT Peak Velocity 70.0 cm/s AV Area Cont Eq vti 2.1 cm squared AV Area Cont Eq pk 1.9 cm squared MV E' Velocity 9.0 cm/s TR Peak Velocity 210.7 cm/s TR Peak Gradient 17.8 mmHg TV Peak E Velocity 54.0 cm/s Right Atrial Pressure 3.0 mmHg Pulmonary Artery Systolic Pressu 20.8 mmHg PV Peak Velocity 119.0 cm/s FINDINGS Left Ventricle Left ventricle is normal in size. LV systolic function is normal with EF of 50 to 55%. No regional wall motion abnormalities. Right Ventricle Normal in size and function Right Atrium Normal in size Left Atrium Normal in size Mitral Valve Grossly has stan valve prolapse. Mild mitral regurgitation Aortic Valve Structurally normal aortic valve. No significant stenosis or regurgitation Tricuspid Valve Mild tricuspid regurgitation. Pulmonary artery systolic pressure is normal. Pulmonic Valve Not well-visualized Pericardium Normal Aorta Normal in size IVC Appears to be normal CONCLUSIONS LV systolic function is normal with EF of 50 to 55%. Grossly mitral valve prolapse. Mild mitral regurgitation Mild tricuspid regurgitation Compared to prior echocardiogram from 2018, no significant changes are seen Jhonatan Vivas MD (Electronically Signed) Final Date: 21 January 2023 08:56 S
== END 2023-01-20 15:14 | disposition home or self-care (01) ==
LOC: RAD 15:13
PROVIDERS: PCP Family Medicine; Visit Provider Internal Medicine Cardiovascular Disease
DX: R06.09 Other forms of dyspnea (principal); I08.1 Rheumatic disorders of both mitral and tricuspid valves
CPT/HCPCS: 93306

== ENCOUNTER → 2023-04-17 11:21 | Outpatient (BNVA) | payer MEDICARE, OTHER, SELFPAY | PROVIDERS: PCP Family Medicine; Visit Provider Internal Medicine Pulmonary Disease | DX: R06.02 Shortness of breath (principal); R59.1 Generalized enlarged lymph nodes; Z99.81 Dependence on supplemental oxygen; E66.01 Morbid (severe) obesity due to excess calories; Z68.43 Body mass index [BMI] 50.0-59.9, adult; Z85.820 Personal history of malignant melanoma of skin | CPT/HCPCS: 82785; 85025; 86003; 99204 ==

== ENCOUNTER 2023-04-30 16:29 | Outpatient (CLI) | payer MEDICARE, OTHER, SELFPAY ==
--- NOTE | 2023-04-30 16:30 | CTR_ITS ---
PROCEDURE INFORMATION: Exam: CT Chest Without Contrast; Diagnostic Exam date and time: 04/30/2023 4:37 PM Age: 62 years old Clinical indication: Other: Lymphadenopathy; Patient HX: HX of melanoma; Additional info: Follow up on lymphadenopathy TECHNIQUE: Imaging protocol: Diagnostic computed tomography of the chest without contrast. Radiation optimization: All CT scans at this facility use at least one of these dose optimization techniques: automated exposure control; mA and/or kV adjustment per patient size (includes targeted exams where dose is matched to clinical indication); or iterative reconstruction. COMPARISON: CT chest w con* [id number] 10/24/2022 11:16 AM RADIATION DOSE METRICS: Total DLP (mGy-cm): 705.39 FINDINGS: Thyroid: Atrophic versus surgically absent right thyroid gland. Lungs: No focal consolidation. No pneumothorax. There is mild ground-glass in the posterior segment of the right upper lobe with a 4 mm nodular opacity, possibly infectious or inflammatory (image 12 of the axial series 3). Pleural spaces: No pleural effusion. Heart: No cardiomegaly. No pericardial effusion. Coronary arteries: No evidence of coronary artery calcification. Mediastinal space: Trachea and airway are grossly patent. No evidence of mediastinal hemorrhage or hematoma. Lymph nodes: There has an unchanged 11 mm short axis lower right paratracheal node (image 19 of the axial series 3, corresponding to image 20 of the axial series 3 from prior exam). Evaluation for hilar adenopathy is limited by lack of IV contrast. No findings to suggest worsening hilar adenopathy. Postcontrast exam would be helpful for detailed evaluation as clinically warranted. Vasculature: No evidence of aneurysmal dilatation of the thoracic aorta. Evaluation for acute vascular injury or thrombosis is limited by lack of IV contrast. Bones/joints: No evidence of acute fracture or aggressive osseous lesion. Soft tissues: No evidence of fluid collection or hematoma in the superficial soft tissues. Clips noted in the left axilla. Other findings: No evidence of acute abnormality in the upper abdomen. Status post cholecystectomy. CT/CT chest wo con [id number] IMPRESSION: 1. No evidence of worsening adenopathy. There is a stable 11 mm lower right paratracheal node. Previously described left hilar adenopathy is not well evaluated due to lack of IV contrast. Postcontrast exam would be helpful for detailed evaluation as clinically warranted. 2. Mild ground-glass in the posterior segment of the right upper lobe with a 4 mm nodular opacity, possibly infectious or inflammatory. Consider follow-up exam in 4-6 weeks to assess for resolution.
== END 2023-04-30 16:30 | disposition home or self-care (01) ==
LOC: RAD 16:29
PROVIDERS: PCP Family Medicine; Visit Provider Internal Medicine Pulmonary Disease
DX: R59.1 Generalized enlarged lymph nodes (principal); Z85.820 Personal history of malignant melanoma of skin; R91.8 Other nonspecific abnormal finding of lung field
CPT/HCPCS: 71250

== ENCOUNTER 2023-05-15 10:21 | Outpatient (CLI) | payer MEDICARE, OTHER, SELFPAY ==
[2023-05-15 11:03] VITALS: PULSE 94; RESP 18; O2SAT 92
[2023-05-15] MEDS: albuterol 2.5 mg/3 mL Neb INHALATION (11:03)
[2023-05-15 11:07] VITALS: PULSE 95
== END 2023-05-15 10:22 | disposition home or self-care (01) ==
LOC: RT 10:23
PROVIDERS: PCP Family Medicine; Visit Provider Internal Medicine Pulmonary Disease
DX: R06.02 Shortness of breath (principal)
CPT/HCPCS: 94060; 94618; 94726; 94729; J7613

== ENCOUNTER → 2023-05-21 14:33 | Outpatient (BNVA) | payer MEDICARE, OTHER, SELFPAY | PROVIDERS: PCP Family Medicine; Referring Provider Family Medicine; Visit Provider Specialist | DX: M19.012 Primary osteoarthritis, left shoulder | CPT/HCPCS: 73030; 99204 ==

== ENCOUNTER → 2023-07-22 12:35 | Outpatient (BNVA) | payer MEDICARE, SELFPAY | PROVIDERS: PCP Family Medicine; Visit Provider Internal Medicine Cardiovascular Disease | DX: R06.02 Shortness of breath (principal); I10 Essential (primary) hypertension; I49.9 Cardiac arrhythmia, unspecified; I50.32 Chronic diastolic (congestive) heart failure; I34.0 Nonrheumatic mitral (valve) insufficiency | CPT/HCPCS: 36415; 80048; 83880; 99214 ==

== ENCOUNTER 2023-08-07 15:52 | Emergency (ER) | payer MEDICARE, OTHER, SELFPAY ==
[2023-08-07 15:56] VITALS: BP 118/73; PULSE 81; RESP 20; TEMP 36.7; O2SAT 92
--- NOTE | 2023-08-07 16:01 | USR_ITS ---
PROCEDURE INFORMATION: Exam: US Duplex Left Lower Extremity Veins, Limited Exam date and time: 08/07/2023 5:01 PM Age: 62 years old Clinical indication: Pain; Leg, lower; Left; Additional info: Concern for dvt TECHNIQUE: Imaging protocol: Real-time duplex ultrasound of the left extremity with 2-D lambert scale, color Doppler flow and spectral waveform analysis including responses to compression and other maneuvers (when performed) with image documentation. Limited exam focused on the left lower extremity veins. COMPARISON: No relevant prior studies available. FINDINGS: Left deep veins: Unremarkable. The common femoral, femoral, proximal profunda femoral and popliteal veins are patent without thrombus. Normal Doppler waveforms. Normal compressibility and/or augmentation response. Superficial veins: Greater saphenous vein at the saphenofemoral junction is patent without thrombus. Soft tissues: Unremarkable. US/CV venous duplex [facility] [id number] IMPRESSION: No evidence of deep vein thrombosis.
--- NOTE | 2023-08-07 16:30 | W.ED.EXTPRO ---
HPI - Extremity Problem General: Chief complaint: Extremity Problem,Nontraumatic Stated complaint: Left leg swollen Time Seen by Provider: 08/07/23 16:29 History of Present Illness: 62-year-old female comes in today for complaints of left lower leg redness and swelling. Redness is contained to the lower part of the lower leg with some mild ankle swelling. No significant swelling of the foot is noted. Strong pedal pulses noted. Patient reports noticing the redness and swelling started yesterday. Patient has morbid obesity, valvular heart disease, CHF, PATRICE, chronic lung disease, chronic OA of the knees, IBS, melanoma, enlarged lymph nodes in the chest, and takes omalizumab for chronic allergies. Patient appears nontoxic. Patient reports no fever. Review of Systems General: Reports: 10 or more systems reviewed and unremarkable except in HPI and below Skin/Breast: Reports: erythema PFSH ED PFSH: Medical History History of hypertension Hx of cardiac arrhythmia Hx of hyperlipidemia Hx of chest pain History of peptic ulcer disease Hx of sleep apnea History of hypothyroidism History of shingles History of asthma Hx of shortness of breath Hx of Marga thyroiditis Family history of premature ventricular contractions Hx of syncope History of unsteady gait Hx of amaurosis fugax Family history of [place] (myocardial infarction) Family history of COPD (chronic obstructive pulmonary disease) Hx of obesity Mitral regurgitation Hypertension Cardiac arrhythmia Hyperlipemia Chest pain Sleep apnea Hypothyroid Diabetes mellitus Asthma Metabolic syndrome Vasculitis Surgical History Hx of melanoma excision History of tonsillectomy History of uvulopalatopharyngoplasty H/O thyroidectomy Family History Father CAD (coronary artery disease) Mother Dementia Stroke Brother Diabetes Lung disease Daughter Diabetes Denies family history of Clotting disorder Chronic kidney disease (CKD) Suicide Anesthesia complication Bleeding disorder Cancer Social History Smoking and tobacco/nicotine status: never used tobacco/nicotine Alcohol intake: never Substance/Drug Use: never Physical Exam Const: COMMON NORMALS: alert HENMT: COMMON NORMALS: atraumatic HEAD & SCALP: atraumatic Neck/C-Spine: COMMON NORMALS: full ROM Resp: COMMON NORMALS: normal respiratory effort Cardio: COMMON NORMALS: regular rate and regular rhythm RATE: regular rate RHYTHM: regular rhythm GI: COMMON NORMALS: Soft to palpation PALPATION: Yes Soft to palpation Back/Pelvis: COMMON NORMALS: thoracic and lumbar spine normal to inspection Extremity: COMMON NORMALS: full ROM Neuro: SENSORIUM/ORIENTATION: Yes alert Skin: NARRATIVE SKIN EXAM: Redness with some mild edema to the left lower leg. Course Vital Signs: Vital signs: Vital Signs Temperature 98.1 F 08/07/23 15:56 Pulse Rate 72 08/07/23 17:00 Respiratory Rate 20 H 08/07/23 15:56 Blood Pressure 118/71 08/07/23 17:00 Pulse Oximetry 90 08/07/23 17:00 Oxygen Delivery Me thod Nasal Cannula 08/07/23 17:00 Oxygen Flow Rate 3 08/07/23 16:52 MDM - Extremity (Nontraumatic) Medical Decision Making 62-year-old female comes in today for complaints of redness and swelling to the left lower leg. On exam there is some mild swelling and redness. Pulses are intact to the extremity. Skin is warm and dry. Vital signs are normal. Patient does wear oxygen chronically. Differential diagnosis includes but not limited to stasis dermatitis, cellulitis, DVT. Ultrasound did not note any DVT. Reviewed exam with patient recommended treatment for cellulitis with Augmentin 1 tablet 3 times a day for the next 7 days. Discussed with patient the need to elevate extremity as much as possible. Recommended acetaminophen as needed for pain. Recommend return to ER for worsening symptoms or follow-up with primary care in 1 week. Patient reported understanding and agreed to plan. All radiology interpretation(s) finalized by discharge Discharge Plan Discharge Patient Disposition: Home Clinical Impression: Cellulitis Qualifiers: Site of cellulitis: extremity Site of cellulitis of extremity: lower extremity Laterality: left Qualified Code(s): L03.116 - Cellulitis of left lower limb Condition: Stable Prescriptions: New amoxicillin-pot clavulanate 875-125 mg tablet 1 tab PO TID 7 Days Qty: 21 0RF No Action atenolol 100 mg tablet 100 mg PO QAM venlafaxine 150 mg tablet extended release 24hr 150 mg PO QAM alprazolam 1 mg tablet 1 mg PO BID PRN cetirizine [Zyrtec] 10 mg tablet 10 mg PO BID Spiriva Respimat 1.25 mcg/actuation mist 2 puff INHALATION QAM Symbicort 160-4.5 mcg/actuation HFA aerosol inhaler 2 puff INHALATION BID epinephrine [EpiPen] 0.3 mg/0.3 mL auto-injector 0.3 mg IM ONCE PRN Xolair 150 mg recon soln 150 mg SUBCUT .MONTHLY fluticasone propionate 50 mcg/actuation spray,suspension 1 spray INTRANASAL QDAY PRN clopidogrel 75 mg tablet 75 mg PO QDAY polymyxin B sulf-trimethoprim [Polytrim] 10,000 unit- 1 mg/mL drops 1 drop ophthalmic (eye) Q3H PRN levothyroxine [Synthroid] 200 mcg tablet 225 mcg PO QDAY escitalopram oxalate 20 mg tablet 20 mg PO DAILY amitriptyline 25 mg tablet 25 mg PO BID gabapentin 600 mg tablet 600 mg PO TID albuterol sulfate [Ventolin HFA] 90 mcg/actuation HFA aerosol inhaler 1 inh inhalation QID cholecalciferol (vitamin D3) 125 mcg (5,000 unit) capsule 125 mcg PO DAILY omeprazole 20 mg capsule,delayed release(DR/EC) 20 mg PO DAILY PRN albuterol sulfate 90 mcg/actuation HFA aerosol inhaler 2 puff inhalation Q6H PRN potassium chloride 20 mEq tablet,ER particles/crystals See Rx Instructions .ROUTE .COMPLEX Qty: 90 3RF Dose Instruction: TAKE 1 TABLET BY MOUTH EVERY DAY Rx Instructions: TAKE 1 TABLET BY MOUTH EVERY DAY furosemide 40 mg tablet 40 mg PO QAM Qty: 90 3RF Discharge Orders: Discharge ED (Routine); Ordered 08/07/23 Ordered By: Luis Gary Referrals: Kapil Turner MD [Primary Care Provider] - Discharge Diet: Usual diet Discharge Activity: Increase activity as tolerated Patient Instructions: Cellulitis (ED) Activity Restrictions/Additional Instructions: Home and rest. Elevate leg for swelling. Try to get the leg up to heart level or above. Take antibiotics as directed. If swelling increases, you start running a fever greater than 100.4, start having increasing shortness of breath or chest pain, return to ER. Follow-up with primary care in 1 week for recheck. Coding Level of Care Code ED Mobile Home Servicer for Lexii Izquierdo
[2023-08-07 16:52] VITALS: BP 143/81; PULSE 71; O2SAT 94
[2023-08-07 17:00] VITALS: BP 118/71; PULSE 72; O2SAT 90
[2023-08-07 17:35] VITALS: PULSE 70; O2SAT 92
== END 2023-08-07 17:38 | disposition home or self-care (01) ==
PROVIDERS: Emergency Provider Nurse Practitioner Family; PCP Family Medicine
DX: L03.116 Cellulitis of left lower limb (principal); J45.909 Unspecified asthma, uncomplicated; Z79.899 Other long term (current) drug therapy
CPT/HCPCS: 93971; 99284

== ENCOUNTER → 2023-08-20 14:31 | Outpatient (BNVA) | payer MEDICARE, OTHER, SELFPAY | PROVIDERS: PCP Family Medicine; Visit Provider Internal Medicine Pulmonary Disease | DX: R06.02 Shortness of breath (principal); J82.83 Eosinophilic asthma; R94.2 Abnormal results of pulmonary function studies; R59.0 Localized enlarged lymph nodes; G47.39 Other sleep apnea | CPT/HCPCS: 99214 ==

== ENCOUNTER → 2024-08-09 15:10 | Outpatient (BNVA) | payer MEDICARE, SELFPAY | PROVIDERS: PCP Family Medicine; Visit Provider Internal Medicine Cardiovascular Disease | DX: I49.8 Other specified cardiac arrhythmias (principal); I50.33 Acute on chronic diastolic (congestive) heart failure; I34.0 Nonrheumatic mitral (valve) insufficiency; R06.02 Shortness of breath; Z79.01 Long term (current) use of anticoagulants | CPT/HCPCS: 99214 ==

== ENCOUNTER 2025-03-14 11:15 | Outpatient (CLI) | payer MEDICARE, OTHER, SELFPAY ==
--- NOTE | 2025-03-14 11:27 | FL_ITS ---
WS: [id number] Modified barium swallow, 03/14/2025 Clinical Data: Oropharyngeal dysphagia Comparison: None. Fluoroscopy time: 2min [id number] # of spot films: Findings: The patient had premature spillage of liquids. There was hypopharyngeal residue which cleared with double swallows. There is a trace penetration with thin liquids but no aspiration. The barium tablet passed normally from the oral pharynx into the hypopharynx and the esophagus and finally the stomach. FL/FL barium swallow modifd [id number] Impression: Trace penetration with thin liquids but no aspiration
== END 2025-03-14 11:16 | disposition home or self-care (01) ==
PROVIDERS: PCP Family Medicine; Visit Provider Family Medicine
DX: R13.12 Dysphagia, oropharyngeal phase (principal)
CPT/HCPCS: 74230; 92611

== ENCOUNTER 2025-03-14 12:13 | Outpatient (CLI) | payer MEDICARE, OTHER, SELFPAY | END 2025-03-14 12:14 | disposition home or self-care (01) | LOC: SLEEP 12:14 | PROVIDERS: PCP Family Medicine; Referring Provider Family Medicine; Visit Provider Family Medicine | DX: J44.9 Chronic obstructive pulmonary disease, unspecified (principal) | CPT/HCPCS: 94762 ==